=== PATIENT | female | born 1980 | race Caucasian/White ===

== ENCOUNTER 2017-09-03 06:54 | Emergency (ER) | payer OTHER ==
--- NOTE | 2017-09-03 07:03 | PDOC ---
History of Present Illness - General Chief Complaint: Asthma Stated Complaint: BREATHING FEELS TIGHT" Time Seen by Provider: 09/03/17 07:02 History Source: Patient Exam Limitations: No Limitations - History of Present Illness Initial Comments: 09/03/17 07:23 37y F hx of asthma, A1 at approx 4-5 weeks gestation, recently dx with influenza and treated with tamiflu for the past 4 days. She endorses congsetion , nonproductive cough, subjective fever, aches. She has been using tylenol fo fever and body aches. She notes sometimes she has some coughing spasms and sob that improves with albuterol. The pt notes that she had the same sob/tinghess/ wheezing this morning when she woke up that felt similar to her asthma, she had to use her daughter nebuilizer with improvement. She currently feels much better but reqeusts some albuterol in case she feels the same way. She has an inhaler but ntoes the neb solution makes her feel much better. No leg swelling, hemoptysis, chest pain. No abd pain, no vag bleeding on vitamins Past History - Past Medical History Allergies/Adverse Reactions: Allergies Allergy/AdvReac Type Severity Reaction Status Date / Time codeine [Codeine] Allergy Verified 09/03/17 06:57 Home Medications: Ambulatory Orders Albuterol Sulfate Inhaler - [Ventolin HFA Inhaler -] 1 - 2 inh PO QID PRN Albuterol 0.083% Nebulizer Farzana [Ventolin 0.083% Nebulizer Soln -] 1 neb NEB Q4H PRN #30 vial 09/03/17 Oseltamivir Phosphate [Tamiflu] 75 mg PO DAILY 09/03/17 Asthma: Yes - Immunization History Td Vaccination: Yes Immunization Up to Date: Yes - Suicide/Smoking/Psychosocial Hx Smoking Status: No Smoking History: Never smoked Number of Cigarettes Smoked Daily: 0 Cigars Per Day: 0 Hx Alcohol Use: No Review of Systems - Review of Systems Able to Perform ROS?: Yes Comments:: 09/03/17 07:36 Constitutional - + Fever,no reported Chills, HEENT: no reported vision changes, sore throat Respiratory: +cough, no reported sob, hemoptysis Cardiac: +chest tightness no reported chest pain, palpitations, light headedness, leg swelling Abd/GI: no reported abd pain, nausea, vomiting, blood per rectum, melena, diarrhea : no reported dysuria, frequency, discharge Musculskelatal - no reported back pain, joint swelling skin - no reported bruising, erythema, rash neurological: no reported headache, numbness, focal weakness, tingling, ataxia, hematologic: no reported anemia, easy bruising, easy bleeding *Physical Exam - Physical Exam Comments: 09/03/17 07:36 GENERAL: The patient is awake, alert, and fully oriented, Nontoxic - in no acute distress. HEAD: Normocephalic, atraumatic. EYES: extraocular movements intact, sclera anicteric, conjunctiva clear. ENT: Normal voice, Moist mucous membranes. NECK: Normal range of motion, supple LUNGS: Breath sounds equal, clear to auscultation bilaterally. No wheezes, no rhonchi, no rales. HEART: Regular rate and rhythm, normal S1 and S2 without murmur, rub or gallop. ABDOMEN: Soft, nontender, normoactive bowel sounds. No guarding, no rebound. . No CVA tenderness EXTREMITIES: Normal range of motion, no edema. No clubbing or cyanosis. No cords, erythema, or tenderness. NEUROLOGICAL: No facial assymetry, Normal speech, PSYCH: Normal mood, normal affect. SKIN: Warm, Dry, normal turgor, Medical Decision Making - Medical Decision Making 09/03/17 07:37 influenza induced bronchospasm no signs or symptoms of pe will give albuterol and recommend robitussin for cough cont tamiflu and tylenol pmd fu return precuations were discussed I discussed the physical exam findings, ancillary test results and final diagnoses with the patient. I answered all of the patient's questions. The patient was satisfied with the care received and felt comfortable with the discharge plan and treatment plan. The patient will call their primary care physician within 24 hours to arrange follow-up and will return to the Emergency Department with any new, persistent or worsening symptoms. *DC/Admit/Observation/Transfer Diagnosis at time of Disposition: Influenza Qualifiers: Weeks of gestation: less than 8 weeks Qualified Code(s): Z3A.01 - Less than 8 weeks gestation of - Discharge Dispostion Disposition: HOME Condition at time of disposition: Improved Admit: No - Prescriptions Prescriptions: Albuterol 0.083% Nebulizer Farzana [Ventolin 0.083% Nebulizer Soln -] 1 neb NEB Q4H PRN #30 vial PRN Reason: Cough - Referrals - Patient Instructions Printed Discharge Instructions: Influenza, Asthma -- Adult Additional Instructions: Return to the emergency department immediately with ANY new, persistent or worsening symptoms. You may use your albuterol for the coughing. Use Robitussin as needed for cough. You MUST call and follow up with your doctor tomorrow for further evaluation of your symptoms. Results were discussed with you. Please make sure your doctor reviews the results of your emergency evaluation. If you had any xrays during your visit, it was read preliminarily by myself, a Radiologist will review it and if there are any additional findings we will call you. - Post Discharge Activity
[2017-09-03 07:07] VITALS: BP 117/82; PULSE 100; TEMP 98; BMI 29.9
[2017-09-03] MEDS ORDERED: ALBUTEROL SO4 0.083% IH SOL 2.5 MG/3 ML VIAL.NEB. NEB ONE ×2 (07:26)
== END 2017-09-03 07:38 | disposition home or self-care (01) ==
LOC: FER 06:54
PROC: 3E0F7GC Introduction of Other Therapeutic Substance into Respiratory Tract, Via Natural or Artificial Opening (ICD-10-PCS; principal; 2017-09-03)
DX: O26.891 Other specified pregnancy related conditions, first trimester (principal); Z3A.01 Less than 8 weeks gestation of pregnancy; J11.1 Influenza due to unidentified influenza virus with other respiratory manifestations
CPT/HCPCS: 99281-25

== ENCOUNTER 2023-03-02 01:09 | Emergency (ER) | payer SELFPAY ==
[2023-03-02 01:20] VITALS: BP 134/88; PULSE 88; RESP 14; TEMP 99.8; BMI 30.7
== END 2023-03-02 02:32 | disposition home or self-care (01) ==
LOC: FER 01:09
DX: R07.9 Chest pain, unspecified (principal); S29.011A Strain of muscle and tendon of front wall of thorax, initial encounter; R50.9 Fever, unspecified; X58.XXXA Exposure to other specified factors, initial encounter
CPT/HCPCS: 99282-25